=== PATIENT | male | born 1980 | race Caucasian/White ===

== ENCOUNTER 2021-04-06 10:28 | Emergency (ER) | payer OTHER, SELFPAY ==
--- NOTE | 2021-04-06 10:29 | ED.GENADUL_ITS ---
Discharge Plan Disposition Patient Disposition: HOME Condition: Stable Discharge Details Clinical Impression: Right foot sprain Primary Care Provider: Giselle,Local ED Provider: Vee Arredondo Home Meds and New Rx's Prescriptions: Continued cetirizine [Zyrtec] 10 mg Tablet 10 mg PO DAILY PRNRF: 0 escitalopram oxalate [Lexapro] 20 mg Tablet 20 mg PO DAILY RF: 0 Discharge Instructions Instructions: Foot Sprain (ED) Additional Instructions: Rest, ice, and elevate the affected area as much as possible. Alternate tylenol and motrin as needed and directed for pain. Follow-up with your primary care doctor in 1 week as needed and for referral to orthopedics if your symptoms do not improve or worsen. Return to the emergency department with any worsening or new concerning symptoms. Discharge Data Discharge Date/Time-TO BE ENTERED AT DEPARTURE: 04/06/21 12:01 Discharge Physician: Vee Arredondo Medical Decision Making 40-year-old male presents with right foot pain after twisting his right foot while walking last night. There is mild to moderate edema and tenderness to the right mid dorsal lateral foot. There is no deformity. Neurovascularly intact. Pt referred to xray which was negative. Patient was placed in an Preet wrap and given crutches per his request. He is from [place] and will be traveling back there in the next week. Advised to follow-up with orthopedics if symptoms do not improve or worsen. Usual and customary return precautions given prior to discharge. Medical Records Medical records reviewed: Yes I reviewed the patient's medical records. Imaging Data Radiologic Study: Radiologist's impression: XR FOOT RT COMPLETE CLINICAL HISTORY: s/p twisting injury, r/o fx R mid lateral foot. TECHNIQUE: 2D digital imaging was performed. COMPARISON: No exams were available for comparison FINDINGS: BONES: No acute fracture is present. No bony destructive lesion is seen. JOINTS: No dislocation present. SOFT TISSUE: Normal. IMPRESSION: Unremarkable radiographs of the right foot. HPI General Mode of arrival: ambulatory . Date/Time Provider Initiated Documentation: 04/06/21 10:29 . Limitations to Documentation: no limitations . Information obtained by: patient . HPI Narrative: Patient is a 40-year-old male who presents to the ED with complaint of right foot pain after twisting his rig ht foot last night while walking. He states his right foot inverted while walking but he did not fall to the ground. He took Motrin prior to arrival. He denies any pain in his ankle. Related Data Home Medications Medication Instructions Recorded Confirmed cetirizine [Zyrtec] 10 mg PO DAILY PRN 04/06/21 04/06/21 escitalopram oxalate [Lexapro] 20 mg PO DAILY 04/06/21 04/06/21 Allergies Allergy/AdvReac Type Severity Reaction Status Date / Time No Known Allergies Allergy Unverified 04/06/21 10:41 Review of Systems All systems reviewed & are unremarkable except as noted in HPI and below PFSH Medical History (Updated 04/06/21 @ 11:30 by Vee Arredondo DO) Depression Seasonal allergies Surgical History (Updated 04/06/21 @ 10:56 by Vee Arredondo DO) No significant past surgical history Social History Smoking/Tobacco Use Status: Current-Occasional Tobacco Type: cigarettes Smoking risk assessment performed?: Yes Drug use: Never Substance use type: does not use Do you feel safe at home: Yes Do you feel safe in your relationship?: Yes Exam Const General: cooperative, healthy appearing and no acute distress HENMT Head: normal to inspection Mouth: oral mucosae normal Eyes General: appearance normal, both eyes and all related structures Neck Neck: normal visual inspection Resp Effort & Inspection: normal respiratory effort and able to speak in complete sentences Cardio Rate: regular rate Skin General skin exam: no rashes or lesions noted Neuro General: patient alert, patient awake and patient oriented x3 Motor: muscle tone normal throughout Extrem Ankle/foot/toe images: 1. Mild to moderate edema and tenderness to palpation to right mid lateral dorsal foot. There is no ecchymosis, erythema, crepitus, induration, fluctuance. There is no deformity. Other: Right radial and ulnar pulses. No tenderness to palpation to right lateral and medial malleolus or right fifth metatarsal. Psych Appearance: grossly normal Affect: normal affect
[2021-04-06 10:38] VITALS: BP 120/81; PULSE 63; RESP 20; TEMP 36.9; O2SAT 99
--- NOTE | 2021-04-06 11:16 | DI.RAD_ITS ---
Exam(s) XR FOOT RT COMPLETE EXAM: XR FOOT RT COMPLETE CLINICAL HISTORY: s/p twisting injury, r/o fx R mid lateral foot. TECHNIQUE: 2D digital imaging was performed. COMPARISON: No exams were available for comparison FINDINGS: BONES: No acute fracture is present. No bony destructive lesion is seen. JOINTS: No dislocation present. SOFT TISSUE: Normal. IMPRESSION: Unremarkable radiographs of the right foot. DATA REPOSITORY: RADIATION DOSE DELIVERED:
== END 2021-04-06 12:01 | disposition home or self-care (01) ==
PROVIDERS: Emergency Provider Physician Assistant
DX: S93.691A Other sprain of right foot, initial encounter (principal); X50.1XXA Overexertion from prolonged static or awkward postures, initial encounter
CPT/HCPCS: 99283; 73630